=== PATIENT | female | born 1945 | race Caucasian/White ===

== ENCOUNTER 2024-02-17 13:24 | Inpatient (IN) | payer OTHER ==
[2024-02-17 19:43] VITALS: BMI 24.2
[2024-02-18] MEDS: Bupropion 150 MG SR.TAB PO SCH (08:51)
[2024-02-18] MEDS: Clopidogrel Bisulfate 75 MG TAB PO SCH (08:51)
[2024-02-18] MEDS: Ranolazine ER 500 MG TAB PO SCH (08:52)
[2024-02-18 12:14] VITALS: BMI 24.2
[2024-02-18] MEDS: Acetaminophen 325 MG TAB PO PRN (12:40)
[2024-02-18] MEDS: Lidocaine 4% Patch TD SCH (21:18)
[2024-02-18] MEDS: Sertraline 25 MG TAB PO SCH (21:19)
[2024-02-18] MEDS: Atorvastatin Calcium 10 MG TAB PO SCH (21:19)
[2024-02-19 05:33] LABS: Hematocrit 36.2 % (36.0-47.0); Hemoglobin 11.9 g/dL (12.0-16.0); Mean Corpuscular HGB CONC 32.8 g/dL (32.0-36.0); Mean Corpuscular Hemoglobin 31.8 pg (27.0-31.0); Mean Platelet Volume 8.9 fL (7.4-10.4); Platelet Count 295 10x3/uL (130-400); RBC Distribution Width 13.8 % (11.5-14.5); Red Blood Cell (RBC) Count 3.73 mill/uL (4.20-5.40); White Blood Cell (WBC) Count 7.3 10x3/uL (4.8-10.8)
[2024-02-19 05:46] LABS: Anion Gap 14 mmol/L (10-20); BUN (Urea Nitrogen) 16 mg/dL (9.8-20.1); Calc. Creatinine Clearance 59 mL/min (70-130); Carbon Dioxide 22 mmol/L (23-31); Chloride 109 mmol/L (98-107); Estimated GFR 74; Glucose 97 mg/dL (83-110); Potassium 4.6 mmol/L (3.5-5.1); Sodium 140 mmol/L (136-145)
[2024-02-19] MEDS: Transdermal Patch Removal TOP SCH (08:41)
[2024-02-19] MEDS: Acetaminophen 500 MG TAB PO PRN (08:41)
[2024-02-20] MEDS: Sertraline 100 MG TAB PO SCH (13:02)
[2024-02-20] MEDS ORDERED: Sertraline 100 MG TAB PO SCH (21:00)
[2024-02-21] MEDS: Sertraline 100 MG TAB PO SCH (08:29)
[2024-02-22] MEDS ORDERED: Ranolazine ER 500 MG TAB ONE ×3 (09:00→21:00)
[2024-02-22] MEDS ORDERED: Clopidogrel Bisulfate 75 MG TAB ONE ×2 (09:00→09:11)
[2024-02-22] MEDS ORDERED: Bupropion 150 MG SR.TAB ONE ×2 (09:00→09:11)
[2024-02-22] MEDS ORDERED: Sertraline 100 MG TAB ONE ×2 (09:00→09:11)
[2024-02-22] MEDS ORDERED: Lidocaine 4% Patch ONE (21:00)
[2024-02-22] MEDS ORDERED: Sertraline 25 MG TAB ONE (21:00)
[2024-02-22] MEDS ORDERED: Atorvastatin Calcium 10 MG TAB ONE (21:00)
[2024-02-23] MEDS ORDERED: Sertraline 100 MG TAB ONE (09:00)
[2024-02-23] MEDS ORDERED: Acetaminophen 500 MG TAB ONE (09:00)
[2024-02-23] MEDS ORDERED: Clopidogrel Bisulfate 75 MG TAB ONE (09:00)
[2024-02-23] MEDS ORDERED: Ranolazine ER 500 MG TAB ONE ×2 (09:00→20:21)
[2024-02-23] MEDS ORDERED: Lidocaine 4% Patch ONE (20:21)
[2024-02-23] MEDS ORDERED: Sertraline 25 MG TAB ONE (20:21)
[2024-02-23] MEDS ORDERED: Atorvastatin Calcium 10 MG TAB ONE (20:21)
[2024-02-24] MEDS: Polyethylene Glycol 3350 17 GM Packet PO PRN (20:55)
[2024-02-25] MEDS ORDERED: Polyethylene Glycol 3350 17 GM Packet PO SCH (09:00)
[2024-03-01 07:15] VITALS: BP 123/60; TEMP 97.7
== END 2024-03-01 10:30 | disposition home or self-care (01) | DRG 561 ==
LOC: MADMS 19:35
PROVIDERS: ADMIT Family Medicine; ATTEND Family Medicine
PROC: F07Z9ZZ Gait Training/Functional Ambulation Treatment (ICD-10-PCS; principal; 2024-02-17)
DX: S22.49XD Multiple fractures of ribs, unspecified side, subsequent encounter for fracture with routine healing (principal); R26.81 Unsteadiness on feet; I10 Essential (primary) hypertension; I25.10 Atherosclerotic heart disease of native coronary artery without angina pectoris; I25.2 Old myocardial infarction; F41.9 Anxiety disorder, unspecified; F32.A Depression, unspecified; R29.6 Repeated falls; Z96.643 Presence of artificial hip joint, bilateral; E78.5 Hyperlipidemia, unspecified; Z88.5 Allergy status to narcotic agent; Z88.6 Allergy status to analgesic agent; Z91.040 Latex allergy status; Z79.02 Long term (current) use of antithrombotics/antiplatelets; Z79.899 Other long term (current) drug therapy; Z95.5 Presence of coronary angioplasty implant and graft; Z90.49 Acquired absence of other specified parts of digestive tract; Z98.51 Tubal ligation status; S27.0XXD Traumatic pneumothorax, subsequent encounter; S32.040D Wedge compression fracture of fourth lumbar vertebra, subsequent encounter for fracture with routine healing; Z91.81 History of falling
CPT/HCPCS: 80048; 85027

== ENCOUNTER 2024-04-17 10:49 | Outpatient (CLI) | payer MEDICARE | END 2024-04-17 10:50 | disposition home or self-care (01) | LOC: MADRAD 10:49 | PROVIDERS: ATTEND Physician Assistant | DX: S32.040D Wedge compression fracture of fourth lumbar vertebra, subsequent encounter for fracture with routine healing (principal); M47.816 Spondylosis without myelopathy or radiculopathy, lumbar region | CPT/HCPCS: 72100 ==